=== PATIENT | female | born 1990 | race Hispanic/Latino ===

== ENCOUNTER 2024-08-28 06:00 | Inpatient (IN) | payer OTHER ==
[~2024-08-28 06:00] MED LIST: FLUCONAZOLE150 MG PO
[2024-08-28] MEDS ORDERED: PENICILLIN G POTASSIUM 2.5 MUNITS in DEXTROSE 5% 100 ML IV SCH ×2 (06:23→11:00)
[2024-08-28] MEDS ORDERED: MAGNESIUM HYDROXIDE/AL HYDROX 30 ML CUP PO PRN (06:30)
[2024-08-28] MEDS ORDERED: CALCIUM CARBONATE 500 MG CHEW PO PRN (06:30)
[2024-08-28] MEDS ORDERED: OXYTOCIN/0.9 % SODIUM CHLORIDE 500 ML IV SCH ×2 (06:30→20:00)
[2024-08-28] MEDS ORDERED: PENICILLIN G POTASSIUM 5 MUNITS/110 ML PIGGYBACK IV ONE (06:30)
[2024-08-28] MEDS ORDERED: LACTATED RINGER'S 1,000 ML IV PRN (06:30)
[2024-08-28 06:39] LABS: HEMATOCRIT 32.9 % (35.0-50.0); MCH 28.8 (27-36); MCHC 33.6 g/dl (30-36); MCV 85.7 fl (81-99); RBC 3.84 M/ul (4.3-5.7); RDW 15.8 (10.5-15.0)
[2024-08-28 06:51] LABS: AMPHETAMINES, URINE NEGATIVE (NEGATIVE); BARBITURATES, URINE NEGATIVE (NEGATIVE); BENZODIAZEPINE, URINE NEGATIVE (NEGATIVE); BUPRENORPHINE, URINE NEGATIVE (NEGATIVE); CANNABINOID, URINE NEGATIVE (NEGATIVE); COCAINE, URINE NEGATIVE (NEGATIVE); ECSTASY, URINE NEGATIVE (NEGATIVE); FENTANYL, URINE NEGATIVE (NEGATIVE); METHADONE, URINE NEGATIVE (NEGATIVE); OPIATES, URINE NEGATIVE (NEGATIVE); OXYCODONE, URINE NEGATIVE (NEGATIVE); PHENCYCLIDINE, URINE NEGATIVE (NEGATIVE)
[2024-08-28 07:10] LABS: ABO B; RH POSITIVE
[2024-08-28 07:11] LABS: ANTIBODY SCREEN NEGATIVE
[2024-08-28] MEDS ORDERED: ROPIVACAINE 0.2% 200 ML BAG ONE (12:40)
[2024-08-28] MEDS ORDERED: LACTATED RINGER'S 2,000 ML IV ONE (13:15)
[2024-08-28] MEDS ORDERED: ROPIVACAINE 0.2% 200 ML BAG EPIDURAL SCH (13:15)
[2024-08-28] MEDS ORDERED: ePHEDrine sulfate 5 MG/ML SYRINGE IV PRN (13:15)
[2024-08-28] MEDS ORDERED: LACTATED RINGER'S 500 ML IV PRN (13:15)
[2024-08-28] MEDS ORDERED: BENZOCAINE 60 ML AEROSOL TOP PRN (20:00)
[2024-08-28] MEDS ORDERED: OXYCODONE HCL 5 MG TAB PO PRN (20:00)
[2024-08-28] MEDS ORDERED: IBUPROFEN 600 MG TAB PO PRN (20:00)
[2024-08-28] MEDS ORDERED: ACETAMINOPHEN 325 MG TAB PO PRN (20:00)
[2024-08-28] MEDS ORDERED: WITCH HAZEL/GLYCERIN 1 EA PAD TOP PRN (20:00)
[2024-08-28] MEDS ORDERED: SENNOSIDES/DOCUSATE 1 EA TAB PO SCH (21:00)
== END 2024-08-29 18:23 | disposition home or self-care (01) | DRG 807 ==
LOC: FBC 06:00
PROVIDERS: ADMIT Obstetrics & Gynecology; ATTEND Obstetrics & Gynecology
PROC: 10E0XZZ Delivery of Products of Conception, External Approach (ICD-10-PCS; principal; 2024-08-28)
PROC: 10907ZC Drainage of Amniotic Fluid, Therapeutic from Products of Conception, Via Natural or Artificial Opening (ICD-10-PCS; 2024-08-28)
PROC: 3E0R3BZ Introduction of Anesthetic Agent into Spinal Canal, Percutaneous Approach (ICD-10-PCS; 2024-08-28)
PROC: 00HU33Z Insertion of Infusion Device into Spinal Canal, Percutaneous Approach (ICD-10-PCS; 2024-08-28)
DX: O99.824 Streptococcus B carrier state complicating childbirth (principal); Z37.0 Single live birth; Z3A.39 39 weeks gestation of pregnancy; Z86.16 Personal history of COVID-19
CPT/HCPCS: 01960; 36415; 80307; 85027; 85060; 86850; 86900; 86901; A9270; J2540; J7121